=== PATIENT | female | born 1980 | race African-American/Black ===

== ENCOUNTER 2022-01-18 11:34 | Inpatient (IN) ==
[2022-01-18] MEDS ORDERED: ACCUNEB 1.25 MG NEBULE NEB PRN (15:40)
[2022-01-18] MEDS ORDERED: SALINE 3% 15 ML NEB TX ONE (15:50)
[2022-01-18] MEDS ORDERED: DUONEB 0.5 MG/3 MG (3 mL) NEB ONE (15:50)
[2022-01-18 16:03] LABS: BILIRUBIN,URINE NEGATIVE (NEGATIVE); BLOOD/HEMOGLOBIN,URINE NEGATIVE (NEGATIVE); GLUCOSE, URINE 4+ (NEGATIVE); KETONES,URINE NEGATIVE (NEGATIVE); LEUKOCYTE ESTERASE ,URINE NEGATIVE (NEGATIVE); NITRITES,URINE NEGATIVE (NEGATIVE); PROTEIN,URINE NEGATIVE (NEGATIVE); UROBILINOGEN,URINE NORMAL (NORMAL)
[2022-01-18 16:05] LABS: APPEARANCE,URINE CLEAR (CLEAR); COLOR,URINE STRAW (YELLOW)
[2022-01-18] MEDS: INVanz INJ 1 GRAM VIAL 1 G in NS 100 ML IV 100 ML IV SCH (16:16)
[2022-01-18] MEDS: SOLU-Medrol 125 MG VIAL IVP SCH ×2 (16:16→21:04)
[2022-01-18 16:26] LABS: ABG BASE EXCESS 9.5 mmol/L (-2.0-2.0)
[2022-01-18] MEDS: DUONEB 0.5 MG/3 MG (3 mL) NEB SCH ×2 (16:26→20:00)
[2022-01-18] MEDS ORDERED: SALINE 3% 15 ML NEB TX NEB ONE (16:26)
[2022-01-18 16:27] LABS: ABG ALLEN TEST POS; ABG HCO3 34.3 mmol/L (22-26)
[2022-01-18 16:29] LABS: BASOPHILS # (AUTO) 0.1 X10^3/uL (0.0-0.1); BASOPHILS % (AUTO) 0.6 % (0.2-1.0); EOSINOPHILS # (AUTO) 0.2 x10^3/uL (0.0-0.2); EOSINOPHILS % (AUTO) 1.8 % (0.9-2.9); HEMATOCRIT 34.4 % (36.0-47.0); HEMOGLOBIN 11.1 g/dL (12.0-16.0); LYMPHOCYTES # (AUTO) 3.9 X10^3/uL (1.3-2.9); LYMPHOCYTES % (AUTO) 32.6 % (21.0-51.0); MEAN CORPUSCULAR HEMOGLOBIN 21.7 pg (27.0-34.0); MEAN CORPUSCULAR HGB CONC 32.2 g/dL (33.0-35.0); MEAN CORPUSCULAR VOLUME 67.4 fL (80.0-100.0); MEAN PLATELET VOLUME 7.2 fL (7.4-11.0); MONOCYTES # (AUTO) 0.5 x10^3/uL (0.3-0.8); MONOCYTES % (AUTO) 4.4 % (0.0-13.0); NEUTROPHILS # (AUTO) 7.3 x10^3/uL (2.2-4.8); NEUTROPHILS % (AUTO) 60.6 % (42.0-75.0); RED CELL DISTRIBUTION WIDTH 15.2 % (11.6-16.5)
[2022-01-18 16:40] LABS: MICROCYTOSIS 1+; PLATELET MORPHOLOGY COMMENT NORMAL (NORMAL)
[2022-01-18 16:41] LABS: ERYTHROCYTE SEDIMENTATION RATE 30 MM/HOUR (0-20)
[2022-01-18 16:46] LABS: ALANINE AMINOTRANSFERASE 26 Units/L (12-78); ALBUMIN 2.9 g/dL (3.4-5.0); ALKALINE PHOSPHATASE 105 Units/L (46-116); ASPARTATE AMINO TRANSFERASE 10 Units/L (15-37); BLOOD UREA NITROGEN 13 mg/dL (7-18); CALCIUM 8.4 mg/dL (8.5-10.1); CARBON DIOXIDE 33.4 mmol/L (21-32); CHLORIDE 97 mmol/L (98-107); COR CA(FOR HYPOALB) 9.3 mg/dL (8.5-10.1); COR NA(FOR HYPERGLY) 142 mmol/L (136-145); CREATININE 0.68 mg/dL (0.55-1.02); SODIUM 134 mmol/L (136-145); TOTAL PROTEIN 6.3 g/dL (6.4-8.2); eGFR NON BLACK RACES > 60 (>60)
[2022-01-18] MEDS: NovoLIN R (or HumuLIN R) SC PRN ×2 (17:49→21:05)
--- NOTE | 2022-01-18 18:25 | RAD ---
CHEST, PA/LAT ADULTHISTORY: PNEU, SOBStudy: PA and lateral views of the chest.Comparison:NoneFindings:The cardiomediastinal silhouette is normal.No focal consolidations, pleural effusions or pneumothorax. Osseous structures demonstrate no acute abnormality.IMPRESSION:1. No acute cardiopulmonary process.Electronically signed by: MINDY MCFADDEN (Jan 18, 2022 18:23:41)
[2022-01-18] MEDS ORDERED: NS 100 ML IV 100 ML ONE (18:32)
--- NOTE | 2022-01-18 19:04 | CT ---
HISTORYPNEUMONIASTUDYCTA [facility]STK[facility] from January 18, [address]22TECHNIQUEAxial CT images of the chest were obtained after the administration of 75 mL Omnipaque 350 IV contrast utilizing a CTA protocol. 3D MIPS were performed and reviewed for further evaluation.Radiation dose: 767.00 mGy-cm total DLPFINDINGSNo significant pericardial effusion.No mediastinal or hilar lymphadenopathy.Aorta is normal in caliber without dissection.Pulmonary arteries are normal in caliber without filling defects to suggest a pulmonary embolus.Airways are widely patent.Thyroid appears normal.No pleural effusion.No focal infiltrate.No pneumothorax.No concerning lung parenchymal lesion identified.Imaged portion of the upper abdomen is unremarkable.No acute osseous abnormality.IMPRESSIONNo acute intrathoracic abnormality, specifically, no pulmonary embolus identified.Electronically signed by: Rojas Bautista (Jan 18, 2022 19:03:06)
[2022-01-18] MEDS ORDERED: PULMICORT NEB TX 0.5 MG NEB ONE (19:07)
[2022-01-18] MEDS: PULMICORT NEB TX 0.5 MG NEB SCH (20:00)
[2022-01-19] MEDS: DUONEB 0.5 MG/3 MG (3 mL) NEB SCH ×6 (00:20→20:45)
[2022-01-19] MEDS: NovoLIN R (or HumuLIN R) SC PRN ×8 (02:15→23:12)
[2022-01-19] MEDS: SOLU-Medrol 125 MG VIAL IVP SCH (06:14)
[2022-01-19 06:29] LABS: BASOPHILS # (AUTO) 0.1 X10^3/uL (0.0-0.1); BASOPHILS % (AUTO) 0.4 % (0.2-1.0); EOSINOPHILS % (AUTO) 0.1 % (0.9-2.9); HEMATOCRIT 33.8 % (36.0-47.0); HEMOGLOBIN 10.9 g/dL (12.0-16.0); LYMPHOCYTES # (AUTO) 1.1 X10^3/uL (1.3-2.9); LYMPHOCYTES % (AUTO) 6.5 % (21.0-51.0); MEAN CORPUSCULAR HEMOGLOBIN 21.6 pg (27.0-34.0); MEAN CORPUSCULAR HGB CONC 32.2 g/dL (33.0-35.0); MEAN PLATELET VOLUME 7.3 fL (7.4-11.0); MONOCYTES # (AUTO) 0.2 x10^3/uL (0.3-0.8); MONOCYTES % (AUTO) 0.9 % (0.0-13.0); NEUTROPHILS # (AUTO) 15.9 x10^3/uL (2.2-4.8); NEUTROPHILS % (AUTO) 92.1 % (42.0-75.0); RED BLOOD COUNT 5.05 X10^6/uL (3.5-5.4); RED CELL DISTRIBUTION WIDTH 15.3 % (11.6-16.5); WHITE BLOOD COUNT 17.3 X10^3/uL (3.6-10.0)
[2022-01-19 06:48] LABS: ALANINE AMINOTRANSFERASE 45 Units/L (12-78); ALBUMIN 3.1 g/dL (3.4-5.0); ALKALINE PHOSPHATASE 119 Units/L (46-116); ASPARTATE AMINO TRANSFERASE 19 Units/L (15-37); BLOOD UREA NITROGEN 20 mg/dL (7-18); CALCIUM 9.1 mg/dL (8.5-10.1); CARBON DIOXIDE 26.9 mmol/L (21-32); CHLORIDE 98 mmol/L (98-107); COR CA(FOR HYPOALB) 9.8 mg/dL (8.5-10.1); COR NA(FOR HYPERGLY) 142 mmol/L (136-145); CREATININE 0.78 mg/dL (0.55-1.02); SODIUM 135 mmol/L (136-145); TOTAL PROTEIN 7.1 g/dL (6.4-8.2); eGFR NON BLACK RACES > 60 (>60)
[2022-01-19 07:22] LABS: BAND NEUTROPHILS % 2 % (0-10)
[2022-01-19 07:23] LABS: MICROCYTOSIS 1+; PLATELET MORPHOLOGY COMMENT NORMAL (NORMAL); TARGET CELLS FEW
[2022-01-19] MEDS: INVanz INJ 1 GRAM VIAL 1 G in NS 100 ML IV 100 ML IV SCH (08:01)
[2022-01-19] MEDS: SOLU-Medrol 40 MG VIAL IVP SCH ×3 (08:30→21:04)
--- NOTE | 2022-01-19 08:37 | RAD ---
HISTORYPneumoniaSTUDYPortable AP and lateral [id number] ed normal heart size and contour with clear lungs and pleural spaces. There is no evidence for pneumonia or atelectasis.IMPRESSIONNo interval change or acute abnormality demonstrated.Electronically signed by: PAMELA GILLILAND (Jan 19, 2022 08:36:52)
[2022-01-19] MEDS: PULMICORT NEB TX 0.5 MG NEB SCH ×2 (08:46→20:45)
[2022-01-19] MEDS ORDERED: TUSSIONEX PENNKINETIC SUSP PO PRN (14:16)
[2022-01-19] MEDS: PROTONIX INJ 40 MG VIAL IVP SCH (14:37)
[2022-01-19] MEDS: PEPCID TAB 20 MG PO SCH (20:52)
[2022-01-20] MEDS: DUONEB 0.5 MG/3 MG (3 mL) NEB SCH ×6 (00:05→20:15)
[2022-01-20] MEDS: NovoLIN R (or HumuLIN R) SC PRN ×4 (01:03→17:55)
[2022-01-20 05:26] LABS: ALANINE AMINOTRANSFERASE 50 Units/L (12-78); ALKALINE PHOSPHATASE 110 Units/L (46-116); ASPARTATE AMINO TRANSFERASE 11 Units/L (15-37); BLOOD UREA NITROGEN 15 mg/dL (7-18); CARBON DIOXIDE 29.1 mmol/L (21-32); CHLORIDE 101 mmol/L (98-107); COR CA(FOR HYPOALB) 9.8 mg/dL (8.5-10.1); COR NA(FOR HYPERGLY) 141 mmol/L (136-145); CREATININE 0.74 mg/dL (0.55-1.02); SODIUM 136 mmol/L (136-145); TOTAL PROTEIN 6.5 g/dL (6.4-8.2); eGFR NON BLACK RACES > 60 (>60)
[2022-01-20 05:29] LABS: BASOPHILS % (AUTO) 0.1 % (0.2-1.0); HEMATOCRIT 31.4 % (36.0-47.0); HEMOGLOBIN 10.1 g/dL (12.0-16.0); LYMPHOCYTES # (AUTO) 3.1 X10^3/uL (1.3-2.9); LYMPHOCYTES % (AUTO) 12.9 % (21.0-51.0); MEAN CORPUSCULAR HEMOGLOBIN 21.6 pg (27.0-34.0); MEAN CORPUSCULAR HGB CONC 32.3 g/dL (33.0-35.0); MEAN PLATELET VOLUME 7.3 fL (7.4-11.0); MONOCYTES # (AUTO) 1.2 x10^3/uL (0.3-0.8); RED BLOOD COUNT 4.68 X10^6/uL (3.5-5.4); RED CELL DISTRIBUTION WIDTH 15.4 % (11.6-16.5); WHITE BLOOD COUNT 24.4 X10^3/uL (3.6-10.0)
[2022-01-20] MEDS: SOLU-Medrol 40 MG VIAL IVP SCH ×2 (05:46→13:00)
[2022-01-20 05:58] LABS: ABG BASE EXCESS 7.4 mmol/L (-2.0-2.0)
[2022-01-20 05:59] LABS: ABG ALLEN TEST POS
[2022-01-20 06:00] LABS: BAND NEUTROPHILS % 2 % (0-10); HYPOCHROMASIA 1+; MICROCYTOSIS 1+; PLATELET MORPHOLOGY COMMENT NORMAL (NORMAL); TARGET CELLS PRESENT
[2022-01-20] MEDS: PEPCID TAB 20 MG PO SCH ×2 (08:00→21:18)
[2022-01-20] MEDS: PROTONIX INJ 40 MG VIAL IVP SCH (08:00)
[2022-01-20] MEDS: INVanz INJ 1 GRAM VIAL 1 G in NS 100 ML IV 100 ML IV SCH (08:00)
[2022-01-20] MEDS: PULMICORT NEB TX 0.5 MG NEB SCH ×2 (09:35→20:15)
[2022-01-20] MEDS ORDERED: GLUCOPHAGE ONE ×2 (10:40→18:51)
[2022-01-20] MEDS: ESTRACE PO SCH (10:46)
[2022-01-20] MEDS: ASPIRIN EC 81 MG PO SCH (10:46)
[2022-01-20] MEDS: NORVASC TAB 5 MG PO SCH (10:47)
[2022-01-20] MEDS: GLUCOPHAGE PO SCH ×2 (10:47→21:18)
[2022-01-20] MEDS: SEMAGLUTIDE 7 MG PO SCH (10:48)
[2022-01-20] MEDS: CYMBALTA PO SCH (10:48)
[2022-01-20] MEDS: FERROUS GLUCONATE PO SCH ×2 (10:55→21:17)
--- NOTE | 2022-01-20 11:58 | PCM.PROG ---
Progress Note Progress Note for Day of Date of Exam: 01/20/22 Subjective Subjective: Patient seen at bedside, no events overnight. She is currently on 2L NC. She reports feeling slightly better, she has been ambulating in the room. Denies N/V/D. She reports some exertional dyspnea. Her FSBG was elevated yesterday. She was admitted recently in [facility] for similar symptoms and stayed a week there. She was discharged on PO abx and steroids. She continued to have worsening symptoms and came here for evaluation. Labs/imaging reviewed: WBC: 24.4 Hgb 10.1 Glucose:329 AB.47/44/90/32 COVID (-) CXR: no acute process CTA-chest: no PE Plan: continue IV antibiotics, nebs and pulmicort. Wean solumedrol. Continue insulin SSI, resume home oral hypoglycemics. Encouraged IS and ambulation. Wean O2 as tolerated to keep sats > 92%. Continue supportive treatment. Follow cultures. Monitor AM labs/imaging. Past Medical Family Social History Past Med/Fam/Surg Hx: No changes since H&P Allergies: Allergies lisinopril Allergy (Verified 01/18/22 15:40) penicillin G Allergy (Verified 01/18/22 15:40) sulfamethoxazole [From Bactrim] Allergy (Verified 01/18/22 15:40) trimethoprim [From Bactrim] Allergy (Verified 01/18/22 15:40) Vital Signs and I&O's Vital Signs: Temperature 98.3 F Pulse Rate [Left Radial] 81 Pulse Rate 80 Respiratory Rate 20 Blood Pressure [Left Arm] 128/74 O2 Sat by Pulse Oximetry 98 Intake and Output: Intake & Output 01/17/22 01/18/22 01/19/22 01/20/22 23:59 23:59 23:59 23:59 Intake Total 120 / 120 4790 / 4790 410 / 410 Balance 120 / 120 4790 / 4790 410 / 410 Physical Exam Oriented: Normal Eyes: Normal Ear: Normal Nose: Normal Throat: Normal Respiratory: Generalized and Diminished Cardiovascular: Normal Auscultation: Bowel Sounds: Normal Palpation: Normal Tenderness: Normal Skin: Normal Musculoskeletal: Normal Psychiatric: Normal Mood Description: Calm Affect: Normal Speech Pattern: Clear Laboratory and Diagnostics Result Diagrams: 01/20/22 04:15 01/20/22 04:15 Labs: 01/18/22 15:20 Urine,Clean Catch Urine Culture - Final 01/18/22 16:16 Blood Blood Culture - Preliminary 01/18/22 16:07 Blood Blood Culture - Preliminary Laboratory WBC 24.4 X10^3/uL (3.6-10.0) H 01/20/22 04:15 RBC 4.68 X10^6/uL (3.5-5.4) 01/20/22 04:15 Hgb 10.1 g/dL (12.0-16.0) L 01/20/22 04:15 Hct 31.4 % (36.0-47.0) L 01/20/22 04:15 MCV 67.0 fL (80.0-100.0) L 01/20/22 04:15 MCH 21.6 pg (27.0-34.0) L 01/20/22 04:15 MCHC 32.3 g/dL (33.0-35.0) L 01/20/22 04:15 RDW 15.4 % (11.6-16.5) 01/20/22 04:15 Plt Count 513 X10^3/uL (150.0-450.0) H 01/20/22 04:15 Plt Count Comment Increased (ADEQUATE) A 01/20/22 04:15 MPV 7.3 fL (7.4-11.0) L 01/20/22 04:15 Neut % (Auto) 82.0 % (42.0-75.0) H 01/20/22 04:15 Lymph % (Auto) 12.9 % (21.0-51.0) L 01/20/22 04:15 [place] % (Auto) 5.0 % (0.0-13.0) 01/20/22 04:15 Eos % (Auto) 0.0 % (0.9-2.9) L 01/20/22 04:15 Baso % (Auto) 0.1 % (0.2-1.0) L 01/20/22 04:15 Neut # (Auto) 20.0 x10^3/uL (2.2-4.8) H 01/20/22 04:15 Lymph # (Auto) 3.1 X10^3/uL (1.3-2.9) H 01/20/22 04:15 [place] # (Auto) 1.2 x10^3/uL (0.3-0.8) H 01/20/22 04:15 Eos # (Auto) 0.0 x10^3/uL (0.0-0.2) 01/20/22 04:15 Baso # (Auto) 0.0 X10^3/uL (0.0-0.1) 01/20/22 04:15 Absolute Nucleated RBC 0.1 /100WBC 01/20/22 04:15 Total Counted 100 01/20/22 04:15 Neutrophils % (Manual) 79 % (39-76) H 01/20/22 04:15 Band Neutrophils % 2 % (0-10) 01/20/22 04:15 Lymphocytes % (Manual) 16 % (13-43) 01/20/22 04:15 Monocytes % (Manual) 3 % (4-9) L 01/20/22 04:15 Plt Morphology Comment Normal (NORMAL) 01/20/22 04:15 RBC Morphology Abnormal (NORMAL) A 01/20/22 04:15 Hypochromasia 1+ A 01/20/22 04:15 Microcytosis 1+ A 01/20/22 04:15 Target Cells Present 01/20/22 04:15 ESR 30 MM/HOUR (0-20) H 01/18/22 16:07 D-Dimer < 0.27 ug/ml (0.0-0.57) 01/18/22 16:07 Sample Site Rr 01/20/22 05:00 ABG pH 7.470 (7.35-7.45) H 01/20/22 05:00 ABG pCO2 44.0 mmHg (35.0-45.0) 01/20/22 05:00 ABG pO2 90.0 mmHg (80.0-100.0) 01/20/22 05:00 ABG HCO3 32.0 mmol/L (22-26) H* 01/20/22 05:00 ABG O2 Saturation 97.0 % (90-100) 01/20/22 05:00 ABG Base Excess 7.4 mmol/L (-2.0-2.0) H 01/20/22 05:00 Leno Test Pos 01/20/22 05:00 A-a Gradient 5.0 mmHg 01/20/22 05:00 FiO2 21.0 01/20/22 05:00 Blood Gas Comments Rupesh well sw 01/20/22 05:00 Sodium 136 mmol/L (136-145) 01/20/22 04:15 Corrected Sodium 141 mmol/L (136-145) 01/20/22 04:15 Potassium 3.9 mmol/L (3.5-5.1) 01/20/22 04:15 Chloride 101 mmol/L (98-107) 01/20/22 04:15 Carbon Dioxide 29.1 mmol/L (21-32) 01/20/22 04:15 BUN 15 mg/dL (7-18) 01/20/22 04:15 Creatinine 0.74 mg/dL (0.55-1.02) 01/20/22 04:15 Est GFR (MDRD) Af Amer > 60 (>60) 01/20/22 04:15 Est GFR (MDRD) Non-Af > 60 (>60) 01/20/22 04:15 Glucose 329 mg/dL (65-99) H 01/20/22 04:15 POC Glucose (mg/dL) 284 mg/dL (65-99) H 01/20/22 10:54 Calcium 9.0 mg/dL (8.5-10.1) 01/20/22 04:15 Corrected Calcium 9.8 mg/dL (8.5-10.1) 01/20/22 04:15 Total Bilirubin 0.40 mg/dL (0.2-1.0) 01/20/22 04:15 AST 11 Units/L (15-37) L 01/20/22 04:15 ALT 50 Units/L (12-78) 01/20/22 04:15 Alkaline Phosphatase 110 Units/L (46-116) 01/20/22 04:15 C-Reactive Protein 52.50 mg/L (0-3.0) H 01/18/22 16:07 Total Protein 6.5 g/dL (6.4-8.2) 01/20/22 04:15 Albumin 3.0 g/dL (3.4-5.0) L 01/20/22 04:15 Globulin 3.5 g/dL (2.5-4.5) 01/20/22 04:15 Albumin/Globulin Ratio 0.9 Ratio (1.1-2.1) L 01/20/22 04:15 Specimen Type Clean catch urine 01/18/22 15:20 Urine Color Straw (YELLOW) 01/18/22 15:20 Urine Appearance Clear (CLEAR) 01/18/22 15:20 Urine pH 7.0 (5.0 - 8.0) 01/18/22 15:20 Ur Specific [place] 1.010 (1.000-1.030) 01/18/22 15:20 Urine Protein Negative (NEGATIVE) 01/18/22 15:20 Urine Glucose (UA) 4+ (NEGATIVE) 01/18/22 15:20 Urine Ketones Negative (NEGATIVE) 01/18/22 15:20 Urine Blood Negative (NEGATIVE) 01/18/22 15:20 Urine Nitrite Negative (NEGATIVE) 01/18/22 15:20 Urine Bilirubin Negative (NEGATIVE) 01/18/22 15:20 Urine Urobilinogen Normal (NORMAL) 01/18/22 15:20 Ur Leukocyte Esterase Negative (NEGATIVE) 01/18/22 15:20 SARS-CoV-2 (PCR) Negative (NEGATIVE) 01/18/22 22:15 Plan (1) Pneumonia: Status: Acute (2) Acute respiratory distress: Status: Acute (3) Uncontrolled diabetes mellitus: Status: Acute (4) HTN (hypertension): Status: Acute (5) Anemia: Status: Acute
[2022-01-20] MEDS: NEURONTIN TAB 600 MG PO SCH ×2 (13:10→21:17)
[2022-01-20] MEDS ORDERED: BUSPAR ONE (18:50)
[2022-01-20] MEDS ORDERED: FERROUS GLUCONATE PO ONE (18:50)
[2022-01-20] MEDS ORDERED: LANTUS SC SCH (21:00)
[2022-01-20] MEDS: BUSPAR PO SCH (21:18)
[2022-01-20] MEDS: SINEquan PO SCH (21:22)
[2022-01-20] MEDS ORDERED: HumaLOG SC STA (21:40)
[2022-01-20] MEDS ORDERED: LANTUS SC ONE (21:49)
[2022-01-20] MEDS ORDERED: HumaLOG SC ONE (21:49)
[2022-01-21] MEDS: DUONEB 0.5 MG/3 MG (3 mL) NEB SCH ×6 (04:50→20:30)
[2022-01-21 05:10] LABS: BASOPHILS % (AUTO) 0.1 % (0.2-1.0); EOSINOPHILS % (AUTO) 0.1 % (0.9-2.9); HEMATOCRIT 31.9 % (36.0-47.0); HEMOGLOBIN 10.3 g/dL (12.0-16.0); LYMPHOCYTES # (AUTO) 5.2 X10^3/uL (1.3-2.9); LYMPHOCYTES % (AUTO) 26.4 % (21.0-51.0); MEAN CORPUSCULAR HEMOGLOBIN 21.7 pg (27.0-34.0); MEAN CORPUSCULAR HGB CONC 32.2 g/dL (33.0-35.0); MEAN CORPUSCULAR VOLUME 67.5 fL (80.0-100.0); MEAN PLATELET VOLUME 7.1 fL (7.4-11.0); MONOCYTES # (AUTO) 1.7 x10^3/uL (0.3-0.8); MONOCYTES % (AUTO) 8.4 % (0.0-13.0); NEUTROPHILS # (AUTO) 12.8 x10^3/uL (2.2-4.8); RED BLOOD COUNT 4.73 X10^6/uL (3.5-5.4); RED CELL DISTRIBUTION WIDTH 15.6 % (11.6-16.5); WHITE BLOOD COUNT 19.7 X10^3/uL (3.6-10.0)
[2022-01-21 05:13] LABS: BLOOD UREA NITROGEN 17 mg/dL (7-18); CALCIUM 8.8 mg/dL (8.5-10.1); CARBON DIOXIDE 30.3 mmol/L (21-32); CHLORIDE 101 mmol/L (98-107); COR NA(FOR HYPERGLY) 141 mmol/L (136-145); CREATININE 0.66 mg/dL (0.55-1.02); SODIUM 139 mmol/L (136-145); eGFR NON BLACK RACES > 60 (>60)
[2022-01-21] MEDS: NEURONTIN TAB 600 MG PO SCH ×3 (05:25→21:21)
[2022-01-21 06:01] LABS: ANISOCYTOSIS SLIGHT; HYPOCHROMASIA 2+; MICROCYTOSIS 1+; PLATELET MORPHOLOGY COMMENT NORMAL (NORMAL); TARGET CELLS PRESENT
[2022-01-21 06:02] LABS: OVALOCYTES PRESENT
[2022-01-21] MEDS ORDERED: HumaLOG SC SCH (06:30)
[2022-01-21] MEDS ORDERED: GLUCOPHAGE ONE ×2 (08:34→20:29)
[2022-01-21] MEDS: CYMBALTA PO SCH (08:44)
[2022-01-21] MEDS: BUSPAR PO SCH ×2 (08:44→21:21)
[2022-01-21] MEDS: ASPIRIN EC 81 MG PO SCH (08:44)
[2022-01-21] MEDS: ESTRACE PO SCH (08:44)
[2022-01-21] MEDS: GLUCOPHAGE PO SCH ×2 (08:44→21:20)
[2022-01-21] MEDS: NORVASC TAB 5 MG PO SCH (08:45)
[2022-01-21] MEDS: PROTONIX INJ 40 MG VIAL IVP SCH (08:45)
[2022-01-21] MEDS: FERROUS GLUCONATE PO SCH ×2 (08:45→21:20)
[2022-01-21] MEDS: INVanz INJ 1 GRAM VIAL 1 G in NS 100 ML IV 100 ML IV SCH (08:45)
[2022-01-21] MEDS: PEPCID TAB 20 MG PO SCH ×2 (08:45→21:20)
[2022-01-21] MEDS: SEMAGLUTIDE 7 MG PO SCH (08:46)
[2022-01-21] MEDS: PULMICORT NEB TX 0.5 MG NEB SCH ×2 (09:20→20:30)
[2022-01-21] MEDS: HumaLOG SC PRN ×3 (11:00→21:19)
--- NOTE | 2022-01-21 11:32 | RAD ---
HISTORYHypoxiaSTUDYAP [id number] ed normal heart size with clear lungs and pleural spaces.IMPRESSIONNo interval change or acute/significant abnormality identified.Electronically signed by: PAMELA GILLILAND (Jan 21, 2022 11:31:24)
--- NOTE | 2022-01-21 11:56 | PCM.PROG ---
Progress Note Progress Note for Day of Date of Exam: 01/21/22 Subjective Subjective: Patient seen at bedside, reports feeling better. She has been using O2 prn 2L. She has been ambulating to the bathroom. She feels like her cough is better. Her FSBG was elevated yesterday in the 500 range. She was switched from Regular insulin SSI to Lispro and Lantus was added. Steroids were stopped last night due to hyperglycemia. Her FSBG is 203 this morning. Patient's blood Cx is positive. Labs/imaging reviewed: WBC: 19.7 Hg b 10.3 Glucose:203 AB.47/44/90/32 COVID (-) CXR: no acute process CTA-chest: no PE Plan: Will repeat CXR. Repeat Blood cultures. Continue IV antibiotics, nebs and pulmicort. Stop solumedrol. Continue insulin lispro SSI, increase lantus to 15 units qHS. A1C pending. Continue home oral hypoglycemics. Encouraged IS and ambulation. Wean O2 as tolerated to keep sats > 92%. Continue supportive treatment. Follow cultures. Monitor AM labs/imaging. Past Medical Family Social History Past Med/Fam/Surg Hx: No changes since H&P Allergies: Allergies lisinopril Allergy (Verified 01/18/22 15:40) penicillin G Allergy (Verified 01/18/22 15:40) sulfamethoxazole [From Bactrim] Allergy (Verified 01/18/22 15:40) trimethoprim [From Bactrim] Allergy (Verified 01/18/22 15:40) Vital Signs and I&O's Vital Signs: Temperature 98.6 F Pulse Rate [Left Radial] 84 Pulse Rate 75 Respiratory Rate 20 Blood Pressure [Left Arm] 115/63 O2 Sat by Pulse Oximetry 99 Intake and Output: Intake & Output 01/18/22 01/19/22 01/20/22 01/21/22 23:59 23:59 23:59 23:59 Intake Total 120 / 120 4790 / 4790 1180 / 1180 250 / 250 Balance 120 / 120 4790 / 4790 1180 / 1180 250 / 250 Physical Exam Oriented: Normal Eyes: Normal Ear: Normal Nose: Normal Throat: Normal Respiratory: Generalized and Diminished Cardiovascular: Normal Auscultation: Bowel Sounds: Normal Tenderness: Normal Skin: Normal Musculoskeletal: Normal Psychiatric: Normal Mood Description: Calm Affect: Normal Speech Pattern: Clear Laboratory and Diagnostics Result Diagrams: 01/21/22 04:30 01/21/22 04:30 Labs: 01/18/22 16:07 Blood Blood Culture - Preliminary 01/18/22 15:20 Urine,Clean Catch Urine Culture - Final 01/18/22 16:16 Blood Blood Culture - Preliminary Laboratory WBC 19.7 X10^3/uL (3.6-10.0) H 01/21/22 04:30 RBC 4.73 X10^6/uL (3.5-5.4) 01/21/22 04:30 Hgb 10.3 g/dL (12.0-16.0) L 01/21/22 04:30 Hct 31.9 % (36.0-47.0) L 01/21/22 04:30 MCV 67.5 fL (80.0-100.0) L 01/21/22 04:30 MCH 21.7 pg (27.0-34.0) L 01/21/22 04:30 MCHC 32.2 g/dL (33.0-35.0) L 01/21/22 04:30 RDW 15.6 % (11.6-16.5) 01/21/22 04:30 Plt Count 509 X10^3/uL (150.0-450.0) H 01/21/22 04:30 Plt Count Comment Increased (ADEQUATE) A 01/21/22 04:30 MPV 7.1 fL (7.4-11.0) L 01/21/22 04:30 Neut % (Auto) 65.0 % (42.0-75.0) 01/21/22 04:30 Lymph % (Auto) 26.4 % (21.0-51.0) 01/21/22 04:30 [place] % (Auto) 8.4 % (0.0-13.0) 01/21/22 04:30 Eos % (Auto) 0.1 % (0.9-2.9) L 01/21/22 04:30 Baso % (Auto) 0.1 % (0.2-1.0) L 01/21/22 04:30 Neut # (Auto) 12.8 x10^3/uL (2.2-4.8) H 01/21/22 04:30 Lymph # (Auto) 5.2 X10^3/uL (1.3-2.9) H 01/21/22 04:30 [place] # (Auto) 1.7 x10^3/uL (0.3-0.8) H 01/21/22 04:30 Eos # (Auto) 0.0 x10^3/uL (0.0-0.2) 01/21/22 04:30 Baso # (Auto) 0.0 X10^3/uL (0.0-0.1) 01/21/22 04:30 Absolute Nucleated RBC 0.1 /100WBC 01/21/22 04:30 Total Counted 100 01/20/22 04:15 Neutrophils % (Manual) 79 % (39-76) H 01/20/22 04:15 Band Neutrophils % 2 % (0-10) 01/20/22 04:15 Lymphocytes % (Manual) 16 % (13-43) 01/20/22 04:15 Monocytes % (Manual) 3 % (4-9) L 01/20/22 04:15 Plt Morphology Comment Normal (NORMAL) 01/21/22 04:30 RBC Morphology Abnormal (NORMAL) A 01/21/22 04:30 Hypochromasia 2+ A 01/21/22 04:30 Anisocytosis Slight A 01/21/22 04:30 Microcytosis 1+ A 01/21/22 04:30 Target Cells Present 01/21/22 04:30 Ovalocytes Present 01/21/22 04:30 ESR 30 MM/HOUR (0-20) H 01/18/22 16:07 D-Dimer < 0.27 ug/ml (0.0-0.57) 01/18/22 16:07 Sample Site Rr 01/20/22 05:00 ABG pH 7.470 (7.35-7.45) H 01/20/22 05:00 ABG pCO2 44.0 mmHg (35.0-45.0) 01/20/22 05:00 ABG pO2 90.0 mmHg (80.0-100.0) 01/20/22 05:00 ABG HCO3 32.0 mmol/L (22-26) H* 01/20/22 05:00 ABG O2 Saturation 97.0 % (90-100) 01/20/22 05:00 ABG Base Excess 7.4 mmol/L (-2.0-2.0) H 01/20/22 05:00 Leno Test Pos 01/20/22 05:00 A-a Gradient 5.0 mmHg 01/20/22 05:00 FiO2 21.0 01/20/22 05:00 Blood Gas Comments Rupesh well sw 01/20/22 05:00 Sodium 139 mmol/L (136-145) 01/21/22 04:30 Corrected Sodium 141 mmol/L (136-145) 01/21/22 04:30 Potassium 3.7 mmol/L (3.5-5.1) 01/21/22 04:30 Chloride 101 mmol/L (98-107) 01/21/22 04:30 Carbon Dioxide 30.3 mmol/L (21-32) 01/21/22 04:30 BUN 17 mg/dL (7-18) 01/21/22 04:30 Creatinine 0.66 mg/dL (0.55-1.02) 01/21/22 04:30 Est GFR (MDRD) Af Amer > 60 (>60) 01/21/22 04:30 Est GFR (MDRD) Non-Af > 60 (>60) 01/21/22 04:30 Glucose 203 mg/dL (65-99) H 01/21/22 04:30 POC Glucose (mg/dL) 340 mg/dL (65-99) H 01/21/22 11:14 Calcium 8.8 mg/dL (8.5-10.1) 01/21/22 04:30 Corrected Calcium 9.8 mg/dL (8.5-10.1) 01/20/22 04:15 Total Bilirubin 0.40 mg/dL (0.2-1.0) 01/20/22 04:15 AST 11 Units/L (15-37) L 01/20/22 04:15 ALT 50 Units/L (12-78) 01/20/22 04:15 Alkaline Phosphatase 110 Units/L (46-116) 01/20/22 04:15 C-Reactive Protein 52.50 mg/L (0-3.0) H 01/18/22 16:07 Total Protein 6.5 g/dL (6.4-8.2) 01/20/22 04:15 Albumin 3.0 g/dL (3.4-5.0) L 01/20/22 04:15 Globulin 3.5 g/dL (2.5-4.5) 01/20/22 04:15 Albumin/Globulin Ratio 0.9 Ratio (1.1-2.1) L 01/20/22 04:15 Specimen Type Clean catch urine 01/18/22 15:20 Urine Color Straw (YELLOW) 01/18/22 15:20 Urine Appearance Clear (CLEAR) 01/18/22 15:20 Urine pH 7.0 (5.0 - 8.0) 01/18/22 15:20 Ur Specific [place] 1.010 (1.000-1.030) 01/18/22 15:20 Urine Protein Negative (NEGATIVE) 01/18/22 15:20 Urine Glucose (UA) 4+ (NEGATIVE) 01/18/22 15:20 Urine Ketones Negative (NEGATIVE) 01/18/22 15:20 Urine Blood Negative (NEGATIVE) 01/18/22 15:20 Urine Nitrite Negative (NEGATIVE) 01/18/22 15:20 Urine Bilirubin Negative (NEGATIVE) 01/18/22 15:20 Urine Urobilinogen Normal (NORMAL) 01/18/22 15:20 Ur Leukocyte Esterase Negative (NEGATIVE) 01/18/22 15:20 SARS-CoV-2 (PCR) Negative (NEGATIVE) 01/18/22 22:15 Plan (1) Pneumonia: Status: Acute (2) Bacteremia: Status: Acute (3) Acute respiratory distress: Status: Acute (4) Uncontrolled diabetes mellitus: Status: Acute (5) HTN (hypertension): Status: Acute (6) Anemia: Status: Acute
[2022-01-21] MEDS ORDERED: SNACK - Diabetic Appropriate PO SCH ×3 (20:00)
[2022-01-21] MEDS ORDERED: LANTUS SC SCH (21:00)
[2022-01-21] MEDS: SINEquan PO SCH ×2 (21:23→22:22)
[2022-01-22] MEDS: DUONEB 0.5 MG/3 MG (3 mL) NEB SCH ×4 (00:25→13:20)
[2022-01-22 05:38] LABS: BASOPHILS % (AUTO) 0.1 % (0.2-1.0); EOSINOPHILS # (AUTO) 0.1 x10^3/uL (0.0-0.2); EOSINOPHILS % (AUTO) 0.8 % (0.9-2.9); HEMATOCRIT 31.8 % (36.0-47.0); HEMOGLOBIN 10.1 g/dL (12.0-16.0); LYMPHOCYTES # (AUTO) 6.2 X10^3/uL (1.3-2.9); LYMPHOCYTES % (AUTO) 46.8 % (21.0-51.0); MEAN CORPUSCULAR HEMOGLOBIN 21.7 pg (27.0-34.0); MEAN CORPUSCULAR HGB CONC 31.9 g/dL (33.0-35.0); MONOCYTES # (AUTO) 0.9 x10^3/uL (0.3-0.8); MONOCYTES % (AUTO) 7.2 % (0.0-13.0); NEUTROPHILS % (AUTO) 45.1 % (42.0-75.0); RED BLOOD COUNT 4.67 X10^6/uL (3.5-5.4); RED CELL DISTRIBUTION WIDTH 15.3 % (11.6-16.5); WHITE BLOOD COUNT 13.3 X10^3/uL (3.6-10.0)
[2022-01-22 05:39] LABS: BLOOD UREA NITROGEN 14 mg/dL (7-18); CALCIUM 8.4 mg/dL (8.5-10.1); CARBON DIOXIDE 31.2 mmol/L (21-32); CHLORIDE 101 mmol/L (98-107); COR NA(FOR HYPERGLY) 142 mmol/L (136-145); CREATININE 0.55 mg/dL (0.55-1.02); SODIUM 137 mmol/L (136-145); eGFR NON BLACK RACES > 60 (>60)
[2022-01-22] MEDS: NEURONTIN TAB 600 MG PO SCH ×3 (05:40→14:53)
[2022-01-22] MEDS: HumaLOG SC PRN ×2 (05:40→12:00)
[2022-01-22 06:16] LABS: PLATELET MORPHOLOGY COMMENT NORMAL (NORMAL)
[2022-01-22 06:17] LABS: ANISOCYTOSIS SLIGHT; HYPOCHROMASIA 2+; MICROCYTOSIS 1+; TARGET CELLS PRESENT
[2022-01-22] MEDS ORDERED: GLUCOPHAGE ONE (06:49)
[2022-01-22] MEDS: ESTRACE PO SCH (08:34)
[2022-01-22] MEDS: INVanz INJ 1 GRAM VIAL 1 G in NS 100 ML IV 100 ML IV SCH (08:34)
[2022-01-22] MEDS: GLUCOPHAGE PO SCH (08:35)
[2022-01-22] MEDS: FERROUS GLUCONATE PO SCH (08:35)
[2022-01-22] MEDS: NORVASC TAB 5 MG PO SCH (08:36)
[2022-01-22] MEDS: ASPIRIN EC 81 MG PO SCH (08:36)
[2022-01-22] MEDS: BUSPAR PO SCH ×2 (08:36→08:39)
[2022-01-22] MEDS: CYMBALTA PO SCH (08:36)
[2022-01-22] MEDS: PEPCID TAB 20 MG PO SCH (08:37)
[2022-01-22] MEDS: PROTONIX INJ 40 MG VIAL IVP SCH (08:37)
[2022-01-22] MEDS: SEMAGLUTIDE 7 MG PO SCH (08:39)
[2022-01-22] MEDS: PULMICORT NEB TX 0.5 MG NEB SCH (09:05)
[2022-01-22 16:23] VITALS: BP 122/71
== END 2022-01-22 17:35 | disposition home or self-care (01) | DRG 195 ==
LOC: MED/SURG
PROVIDERS: ADMIT Internal Medicine; ATTEND Internal Medicine